=== PATIENT | female | born 1945 | race Caucasian/White ===

== ENCOUNTER 2016-03-28 15:14 | Emergency (ER) | payer BC, OTHER ==
[~2016-03-28] VITALS: Ht 152.4 cm; Wt 59.4 kg
[~2016-03-28 15:14] MED LIST: CLEO300C2 PO; ESTR1TAB68 PO; TYLE3 PO
[2016-03-28 15:25] VITALS: BP 146/71; PULSE 62; RESP 16; TEMP 97.7; O2SAT 100
[2016-03-28] MEDS ORDERED: CLIN1CAP6 PO (16:05)
--- NOTE | 2016-03-28 16:06 | PD ---
HPI Chief Complaint: Skin Problem Time Seen by Provider: 15:56 Travel History International Travel<30 days: No Contact w/Intl Traveler<30days: No Traveled to known affect area: No History of Present Illness HPI This is a 70-year-old female who presents to the emergency department with 4 days of a lesion on her left lower extremity. She says on Wednesday night she felt an itching and a sharp sensation on the bottom of her left leg and then the following day she noticed a red lesion that's been increasing in size. She saw her plug stitcher for it yesterday and she prescribed her topical antibiotic and gave her a prescription for doxycycline and sent to fill it if her symptoms worsen. She said to come to the emergency department if her redness spread outside the area that she marked yesterday, or if she developed a black center to the wound. The patient noticed a small area of blackness in the middle so she came to the emergency department today. 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) Tobacco Use: No Substance Use: No Allergies-Medications (Allergen,Severity, Reaction): Coded Allergies: Aspirin (Verified Allergy, Mild, 04/30/07) Sulfa (Verified Allergy, Mild, 04/30/07) Reported Meds & Prescriptions Reported Meds & Active Scripts Active Tylenol #3 (Acetaminophen/Codeine Phosphate) 300 Mg/30 Mg Tab 1 Tab PO Q6HPRN Cleocin (Clindamycin HCl) 300 Mg Cap 1 Tab PO QID Reported Activella (Estradiol/Norethindrone Acetate) Tab 1 Tab PO EVERY 3 DAYS Review of Systems General / Constitutional: No: Fever, Chills Cardiovascular: No: Chest Pain or Discomfort Physical Exam Narrative GENERAL: Well-appearing, no acute distress, nontoxic SKIN: 3 cm well-circumscribed lesion involving the anterior left lower extremity , hyperemic and warm with a darkened center but no fluctuance or induration. HEAD: Atraumatic. Normocephalic. ENT: No nasal bleeding or discharge. Moist mucous membranes MUSCULOSKELETAL: No obvious deformities. No clubbing. No cyanosis. No edema. NEUROLOGICAL: Awake and alert. No obvious cranial nerve deficits. Motor grossly within normal limits. Normal speech. PSYCHIATRIC: Appropriate mood and affect; insight and judgment normal. Data Data Last Documented VS Vital Signs Date Time Temp Pulse Resp B/P Pulse Ox O2 Delivery O2 Flow Rate FiO2 03/28/16 15:25 97.7 62 16 146/71 100 MDM Medical Decision Making Medical Screen Exam Complete: Yes Emergency Medical Condition: Yes Differential Diagnosis Insect bite, cellulitis, sepsis, necrotizing fasciitis, abscess Narrative Course This is a 70-year-old female who presents to the emergency department with a small lesion on the left lower extremity which has been worsening per her description over the past several days. She appears to have a localized cellulitis which may be converting into an abscess but at this time has no fluctuance or induration. I think it's reasonable to put the patient on clindamycin for possible MRSA given the development of some eschar in the center of the wound. Otherwise the patient is nontoxic appearing and I think she is appropriate for outpatient antibiotic therapy. Patient will be discharged home. Diagnosis Primary Impression: Cellulitis Qualified Code: L03.116 - Cellulitis of left lower extremity Patient Instructions: General Instructions Additional Instructions: If you develop fever, increasing redness, warmth, or spreading of your infection , or severe pain return to the emergency department immediately as you may require antibiotics through your IV. Complete your course of antibiotics as prescribed. Med/Other Pt SpecificInfo: Prescription(s) given Scripts Clindamycin 300 Mg Aum153 Mg PO TID #21 CAP Ref 0 Prov:Dennise Quintero MD 03/28/16 Disposition: 01 DISCHARGE HOME Condition: Stable Dennise Quintero MD Mar 28, 2016 16:05
== END 2016-03-28 16:29 | disposition home or self-care (01) ==
LOC: PHEFT 15:14
DX: L03.116 Cellulitis of left lower limb (principal)
CPT/HCPCS: 99282